=== PATIENT | male | born 1985 | race Caucasian/White ===

== ENCOUNTER 2022-03-18 07:58 | Emergency (ER) | payer MEDICAID ==
[2022-03-18] MEDS ORDERED: Sodium Chloride 0.9% 10 ML Syringe FLUSH PRN (09:08)
[2022-03-18] MEDS ORDERED: Sodium Chloride 0.9% 500 ML IV ONE (09:08)
[2022-03-18] MEDS ORDERED: LORazepam 2 MG/ML SDV IVPUSH ONE (09:08)
[2022-03-18 09:59] LABS: ESTIMATED GFR 115 mL/min (>60)
[2022-03-18] MEDS ORDERED: Magnesium Sulfate/Water 2 GM in Premix Bag 1 BAG IV ONE (10:46)
[2022-03-18] MEDS ORDERED: Potassium Chloride 20 MEQ Tab.ER PO ONE (10:46)
[2022-03-18] MEDS ORDERED: Magnesium Oxide 400 MG Tab PO ONE (10:54)
== END 2022-03-18 11:40 | disposition home or self-care (01) ==
LOC: FB.ED 07:58
DX: F10.231 Alcohol dependence with withdrawal delirium (principal); E83.42 Hypomagnesemia; E87.6 Hypokalemia; D69.6 Thrombocytopenia, unspecified; I10 Essential (primary) hypertension; Z79.899 Other long term (current) drug therapy; Z72.0 Tobacco use
CPT/HCPCS: 36415; 70450; 80053; 80307; 83735; 85025; 93005; 93010; 96374; 99283; 99284-25; A9270-GY; J2060; J7040